=== PATIENT | female | born 1980 | race Caucasian/White ===

== ENCOUNTER 2018-07-20 09:34 | Outpatient (CLI) | payer BC, SELFPAY ==
[2018-07-20 09:52] LABS: HGB 12.7 g/dL (12.0-15.5); Mean Corp. HGB Concentration 33.4 g/dL (32.0-36.0); Mean Corpuscular Volume 92.7 fL (80-95); Mean Platelet Volume 10.2 fL (8.0-11.0); Platelet Count 190 x1000/uL (130-400); RBC Distribution Width 12.7 % (11.7-14.6); White Blood Cell Count 12.39 k/cumm (4.4-10.8)
[2018-07-20 10:00] LABS: Glucose,1 Hr (Glucola) 100 mg/dL (80-140)
== END 2018-07-20 09:54 ==
PROVIDERS: PCP Internal Medicine; Visit Provider Advanced Practice Midwife
DX: Z34.93 Encounter for supervision of normal pregnancy, unspecified, third trimester (principal); Z3A.28 28 weeks gestation of pregnancy
CPT/HCPCS: 36415; 82950; 85027

== ENCOUNTER 2018-09-01 09:58 | Outpatient (CLI) | payer BC, SELFPAY ==
[2018-09-01 10:28] LABS: HCT 38.5 % (36.0-46.0); HGB 12.5 g/dL (12.0-15.5); Mean Corp. HGB Concentration 32.5 g/dL (32.0-36.0); Mean Corpuscular Hemoglobin 28.4 pg (27.0-33.0); Mean Corpuscular Volume 87.5 fL (80-95); Mean Platelet Volume 11.3 fL (8.0-11.0); Platelet Count 184 x1000/uL (130-400); RBC Distribution Width 13.3 % (11.7-14.6); White Blood Cell Count 9.02 k/cumm (4.4-10.8)
[2018-09-01 11:14] LABS: ALT 22 U/L (12-78); AST 22 U/L (15-37); Albumin 2.3 g/dL (3.4-5.0); Alkaline Phosphatase 195 U/L (46-116); Bilirubin, Direct 0.09 mg/dL (0.00-0.20); Bilirubin, Total 0.5 mg/dL (0.2-1.0); Total Protein 5.7 g/dL (6.4-8.2); Uric Acid 4.7 mg/dL (2.6-6.0)
[2018-09-01 13:39] LABS: PROTEIN 20.8 mg/dL
[2018-09-01 13:42] LABS: COMMENT (LAB VIEW ONLY) 207.15 mg/dL
== END 2018-09-01 10:18 ==
PROVIDERS: PCP Internal Medicine; Visit Provider Advanced Practice Midwife
DX: Z98.891 History of uterine scar from previous surgery (principal); Z34.93 Encounter for supervision of normal pregnancy, unspecified, third trimester
CPT/HCPCS: 36415; 80076; 85027; 82565; 84156; 84550

== ENCOUNTER 2018-09-11 16:20 | Inpatient (IN) | payer BC, SELFPAY ==
[2018-09-11 16:58] LABS: HCT 36.1 % (36.0-46.0); HGB 11.9 g/dL (12.0-15.5); Mean Corpuscular Hemoglobin 28.3 pg (27.0-33.0); Mean Platelet Volume 11.7 fL (8.0-11.0); Platelet Count 189 x1000/uL (130-400); RBC Distribution Width 13.6 % (11.7-14.6); White Blood Cell Count 9.28 k/cumm (4.4-10.8)
[2018-09-11 17:11] LABS: ALT 22 U/L (12-78); AST 24 U/L (15-37); Albumin 2.2 g/dL (3.4-5.0); Alkaline Phosphatase 211 U/L (46-116); Anion Gap 8.6 mmol/L (3-11); BUN 14 mg/dL (7-18); Bilirubin, Total 0.5 mg/dL (0.2-1.0); CO2 24.4 mmol/L (21.0-32.0); CREATININE 0.75 mg/dL (0.55-1.02); Calcium 8.4 mg/dL (8.5-10.1); Chloride 102 mmol/L (98-107); Glucose 86 mg/dL (70-100); Potassium 4.2 mmol/L (3.5-5.1); Sodium 135 mmol/L (136-145); Total Protein 6.2 g/dL (6.4-8.2)
[2018-09-11 17:30] LABS: PROTEIN 185.5 mg/dL
[2018-09-11 17:32] LABS: COMMENT (LAB VIEW ONLY) 242.52 mg/dL; Prot/Crea Ur Ratio 0.76
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
[2018-09-11] MEDS: Labetalol 100 MG/20 ML VIAL IVP (18:29)
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
[2018-09-11] MEDS: Lactated Ringers 1,000 ML 30 ML IV (18:36)
[2018-09-11] MEDS: Normal Saline Flush 10 ML SYR 20 ML (18:46)
[2018-09-11] MEDS: Labetalol 100 MG TAB 200 MG PO (19:40)
[2018-09-12 00:43] LABS: HGB 11.8 g/dL (12.0-15.5); Mean Corp. HGB Concentration 32.8 g/dL (32.0-36.0); Mean Corpuscular Hemoglobin 28.2 pg (27.0-33.0); Mean Corpuscular Volume 85.9 fL (80-95); Mean Platelet Volume 11.1 fL (8.0-11.0); Platelet Count 184 x1000/uL (130-400); RBC 4.19 m/cumm (4.00-5.20); RBC Distribution Width 13.7 % (11.7-14.6); White Blood Cell Count 10.28 k/cumm (4.4-10.8)
[2018-09-12 00:56] LABS: ALT 23 U/L (12-78); AST 26 U/L (15-37); Albumin 2.2 g/dL (3.4-5.0); Alkaline Phosphatase 212 U/L (46-116); Anion Gap 9.7 mmol/L (3-11); BUN 13 mg/dL (7-18); Bilirubin, Total 0.6 mg/dL (0.2-1.0); CO2 24.3 mmol/L (21.0-32.0); CREATININE 0.77 mg/dL (0.55-1.02); Calcium 8.1 mg/dL (8.5-10.1); Chloride 101 mmol/L (98-107); Glucose 85 mg/dL (70-100); Potassium 3.8 mmol/L (3.5-5.1); Sodium 135 mmol/L (136-145); Total Protein 6.2 g/dL (6.4-8.2)
--- NOTE | 2018-09-12 08:12 | PGE_ITS ---
Assessment and Plan (1) Preeclampsia: Current visit: Yes Status: Acute Patient admitted for evaluation of preeclampsia. Her blood pressures have been reasonable overnight since starting antihypertensive medications. I had a lengthy discussion with the patient regarding conditions that would prompt delivery including elevated blodo pressures, laboratory abnormalities or signs and symptoms that would suggest severe preeclampsia. 24 hour urine is in progress. We will obtain a growth ultrasound today. NST 3x per day. Subjective Interval history since last seen: No problems overnight. Denies headache or visual changes since admission. Feels well. Reports good movement. Exam Resp Effort & Inspection: normal respiratory effort Auscultation: clear to auscultation bilaterally Cardio Rhythm: regular rhythm Heart Sounds: S1 normal and S2 normal Extrem Other: 2+ edema Objective Objective Clinical Data: Abnormal lab results 09/11/18 09/11/18 09/12/18 Range/Units 16:50 16:50 00:35 Hgb 11.9 L (12.0-15.5) g/dL MPV 11.7 H (8.0-11.0) fL Sodium 135 L 135 L (136-145) mmol/L Calcium 8.4 L 8.1 L (8.5-10.1) mg/dL Alkaline Phosphatase 211 H 212 H (46-116) U/L Total Protein 6.2 L 6.2 L (6.4-8.2) g/dL Albumin 2.2 L 2.2 L (3.4-5.0) g/dL 09/12/18 Range/Units 00:35 Hgb 11.8 L (12.0-15.5) g/dL MPV 11.1 H (8.0-11.0) fL Sodium (136-145) mmol/L Calcium (8.5-10.1) mg/dL Alkaline Phosphatase (46-116) U/L Total Protein (6.4-8.2) g/dL Albumin (3.4-5.0) g/dL Intake & Output 09/11/18 09/11/18 09/12/18 11:59 23:59 11:59 Weight 199 lb Laboratory Results WBC 10.28 k/cumm (4.4-10.8) 09/12/18 00:35 RBC 4.19 m/cumm (4.00-5.20) 09/12/18 00:35 Hgb 11.8 g/dL (12.0-15.5) L 09/12/18 00:35 Hct 36.0 % (36.0-46.0) 09/12/18 00:35 MCV 85.9 fL (80-95) 09/12/18 00:35 MCH 28.2 pg (27.0-33.0) 09/12/18 00:35 MCHC 32.8 g/dL (32.0-36.0) 09/12/18 00:35 RDW 13.7 % (11.7-14.6) 09/12/18 00:35 Plt Count 184 x1000/uL (130-400) 09/12/18 00:35 MPV 11.1 fL (8.0-11.0) H 09/12/18 00:35 Sodium 135 mmol/L (136-145) L 09/12/18 00:35 Potassium 3.8 mmol/L (3.5-5.1) 09/12/18 00:35 Chloride 101 mmol/L (98-107) 09/12/18 00:35 Carbon Dioxide 24.3 mmol/L (21.0-32.0) 09/12/18 00:35 Anion Gap 9.7 mmol/L (3-11) 09/12/18 00:35 BUN 13 mg/dL (7-18) 09/12/18 00:35 Creatinine 0.77 mg/dL (0.55-1.02) 09/12/18 00:35 Estimated GFR/1.73 m2 >= 60.00 (mL/min/1.73m2) 09/12/18 00:35 Glucose 85 mg/dL (70-100) 09/12/18 00:35 Calcium 8.1 mg/dL (8.5-10.1) L 09/12/18 00:35 Total Bilirubin 0.6 mg/dL (0.2-1.0) 09/12/18 00:35 AST 26 U/L (15-37) 09/12/18 00:35 ALT 23 U/L (12-78) 09/12/18 00:35 Alkaline Phosphatase 212 U/L (46-116) H 09/12/18 00:35 Total Protein 6.2 g/dL (6.4-8.2) L 09/12/18 00:35 Albumin 2.2 g/dL (3.4-5.0) L 09/12/18 00:35 Ur Random Creatinine 242.52 mg/dL 09/11/18 16:50 U Random Total Protein 185.5 mg/dL 09/11/18 16:50 U [place] Prot/Creat Ratio 0.76 09/11/18 16:50 Patient ABO/Rh O Positive 09/12/18 00:35 Antibody Screen Negative 09/12/18 00:35
[2018-09-12] MEDS: Labetalol 100 MG TAB 200 MG PO ×2 (08:16→20:00)
--- NOTE | 2018-09-12 10:18 | DI.US_ITS ---
Many abnormalities cannot be diagnosed. A normal exam does not exclude a congenital anomaly. Radiology No. LMP: Exam Date: 09/12/18 [facility] 10 wks 2 days on 03/11/18 EDC ([facility]) 10/07/18 Confirmed: HISTORY: PRE ECLAMPSIA ---- PREDICTED GESTATIONAL AGE NUMBER 36.5 weeks with a range of 35.5 week to 37.5 weeks. 1 Determined by__[id number]___LMP___HISTORY Info. pertaining to fetus # PLACENTA PRESENTATION Grade I-II Cephalic_X__ Anterior_X__Posterior___ Breech____ Right Left Transverse(head right___ Fundal___Low-lying___Previa___ Transverse(head left___ Varying BIOMETRY AMNIOTIC FLUID BPD: 91 mm 37 weeks Normal HC: 334 mm 38.1 weeks AC: 339 mm 37.6 weeks FL: 73 mm 37.1 weeks AMNIOTIC FLUID INDEX >26 WK CRL: mm weeks Cisterna Magna: mm CI: 0.81 RUQ:__5.76____LUQ___5.54 Cerebellum: cm EFW: [address] Percentile RLQ:_3.93 LLQ__4.16 Total:____19.4____cms Composite AGE= 37.4 wks EDC by US____09/29/18 BIOPHYSICAL PROFILE ANATOMY IDENTIFIED SCORE 0/2 Heart: 4-Chamber___Rate:BPM__131___ LVOT: RVOT: Amniotic Fluid(>2cms)____ Stomach:____X___ Kidneys:____X___ Respirations (>30 secs) Bladder: X__ Post. Fossa: Body Flex/Extension 3 vessel cord: Ventricles: cord insertion: Lips:____ Extremity Flex/Extension spinal morphology: Nose: Total Score= Palate: NS=not seen There is a single living intrauterine gestation. Estimated sonographic age is 37 weeks 4 days. heart rate is 131 beats per minute. A complete anatomic evaluation was not performed at this time. Estimated weight is 3258 grams. This is the 83 rd percentile. Amniotic fluid index is 19.4 cm. Visually, amniotic fluid is within normal limits. The placenta is anterior and unremarkable. IMPRESSION: Single living intrauterine gestation. Estimated sonographic is 37 weeks 4 days.
--- NOTE | 2018-09-12 16:40 | W.PM.PROGNOT ---
Assessment and Plan (1) Preeclampsia: Current visit: Yes Status: Acute Will plan to proceed with repeat section and bilateral tubal ligation tomorrow morning. If blood pressures enter severe range will proceed with delivery this evening and start on magnesium sulfate. Will continue labetalol for now. We did have a lengthy discussion related to risks of prematurity at 36 weeks gestation and discussed risks such as the need for respiratory support. All questions were answered. (2) Previous section: Current visit: No Status: Acute (3) Request for sterilization: Current visit: No Status: Acute Subjective Interval history since last seen: Doing well. Denies headache or visual changes. She does feel that her edema is gradually worsening also. Ambulatory within room. Blood pressures have been increasing steadily. She does report good movement. Exam Resp Auscultation: clear to auscultation bilaterally Cardio Rhythm: regular rhythm Heart Sounds: S1 normal and S2 normal Extrem Other: 2+ pitting edema. Brisk reflexes. Objective Objective Clinical Data: Abnormal lab results 09/11/18 09/11/18 09/12/18 Range/Units 16:50 16:50 00:35 Hgb 11.9 L (12.0-15.5) g/dL MPV 11.7 H (8.0-11.0) fL Sodium 135 L 135 L (136-145) mmol/L Calcium 8.4 L 8.1 L (8.5-10.1) mg/dL Alkaline Phosphatase 211 H 212 H (46-116) U/L Total Protein 6.2 L 6.2 L (6.4-8.2) g/dL Albumin 2.2 L 2.2 L (3.4-5.0) g/dL 09/12/18 Range/Units 00:35 Hgb 11.8 L (12.0-15.5) g/dL MPV 11.1 H (8.0-11.0) fL Sodium (136-145) mmol/L Calcium (8.5-10.1) mg/dL Alkaline Phosphatase (46-116) U/L Total Protein (6.4-8.2) g/dL Albumin (3.4-5.0) g/dL Intake & Output 09/11/18 09/12/18 09/12/18 23:59 11:59 23:59 Weight 199 lb Laboratory Results WBC 10.28 k/cumm (4.4-10.8) 09/12/18 00:35 RBC 4.19 m/cumm (4.00-5.20) 09/12/18 00:35 Hgb 11.8 g/dL (12.0-15.5) L 09/12/18 00:35 Hct 36.0 % (36.0-46.0) 09/12/18 00:35 MCV 85.9 fL (80-95) 09/12/18 00:35 MCH 28.2 pg (27.0-33.0) 09/12/18 00:35 MCHC 32.8 g/dL (32.0-36.0) 09/12/18 00:35 RDW 13.7 % (11.7-14.6) 09/12/18 00:35 Plt Count 184 x1000/uL (130-400) 09/12/18 00:35 MPV 11.1 fL (8.0-11.0) H 09/12/18 00:35 Sodium 135 mmol/L (136-145) L 09/12/18 00:35 Potassium 3.8 mmol/L (3.5-5.1) 09/12/18 00:35 Chloride 101 mmol/L (98-107) 09/12/18 00:35 Carbon Dioxide 24.3 mmol/L (21.0-32.0) 09/12/18 00:35 Anion Gap 9.7 mmol/L (3-11) 09/12/18 00:35 BUN 13 mg/dL (7-18) 09/12/18 00:35 Creatinine 0.77 mg/dL (0.55-1.02) 09/12/18 00:35 Estimated GFR/1.73 m2 >= 60.00 (mL/min/1.73m2) 09/12/18 00:35 Glucose 85 mg/dL (70-100) 09/12/18 00:35 Calcium 8.1 mg/dL (8.5-10.1) L 09/12/18 00:35 Total Bilirubin 0.6 mg/dL (0.2-1.0) 09/12/18 00:35 AST 26 U/L (15-37) 09/12/18 00:35 ALT 23 U/L (12-78) 09/12/18 00:35 Alkaline Phosphatase 212 U/L (46-116) H 09/12/18 00:35 Total Protein 6.2 g/dL (6.4-8.2) L 09/12/18 00:35 Albumin 2.2 g/dL (3.4-5.0) L 09/12/18 00:35 Ur Random Creatinine 242.52 mg/dL 09/11/18 16:50 U Random Total Protein 185.5 mg/dL 09/11/18 16:50 U [place] Prot/Creat Ratio 0.76 09/11/18 16:50 Patient ABO/Rh O Positive 09/12/18 00:35 Antibody Screen Negative 09/12/18 00:35
[2018-09-12] MEDS: Lactated Ringers 1,000 ML 30 ML IV (19:41)
[2018-09-12 21:52] LABS: Total Volume 1900 ml
[2018-09-12 21:57] LABS: PROTEIN 16.1 mg/dL (0.0-11.9)
[2018-09-12 22:01] LABS: TOTAL PROTEIN,URINE TIMED 305.9 mg/24hr (0.0-149.1)
[2018-09-13] MEDS: Lactated Ringers 1,000 ML 200 ML IV ×2 (05:08)
[2018-09-13] MEDS: Sodium Citrate 30 ML CUP PO (07:24)
[2018-09-13] MEDS: Lactated Ringers 1,000 ML 30 ML IV (07:26)
[2018-09-13 07:30] LABS: HCT 35.7 % (36.0-46.0); HGB 11.5 g/dL (12.0-15.5); Mean Corp. HGB Concentration 32.2 g/dL (32.0-36.0); Mean Corpuscular Hemoglobin 27.9 pg (27.0-33.0); Mean Corpuscular Volume 86.7 fL (80-95); Mean Platelet Volume 11.2 fL (8.0-11.0); Platelet Count 184 x1000/uL (130-400); RBC 4.12 m/cumm (4.00-5.20); White Blood Cell Count 7.61 k/cumm (4.4-10.8)
--- NOTE | 2018-09-13 07:34 | W.PM.PROGNOT ---
Assessment and Plan (1) Preeclampsia: Current visit: Yes Status: Acute (2) Previous section: Current visit: No Status: Acute Plan to proceed with RLTCS and tubal sterilization via salpingectomy. Risks of surgery were reviewed with the patient including hemorrhage, infection and injury to other organs such as bowel and bladder. We discused the intended irreversibility of tubal ligation and she had been counseled on alternative forms of contraception. All questions were answered to the patient's satisfaction and consent was obtained. Subjective Interval history since last seen: No problems overnight. Denies headache or visual changes. Reports good movement. Exam Resp Auscultation: clear to auscultation bilaterally Cardio Rhythm: regular rhythm Heart Sounds: S1 normal and S2 normal Objective Objective Clinical Data: Abnormal lab results 09/11/18 Range/Units 19:50 U Random Total Protein 16.1 H (0.0-11.9) mg/dL Ur Total Protein 24 Hr 305.9 H (0.0-149.1) mg/24hr Intake & Output 09/12/18 09/12/18 09/13/18 11:59 23:59 11:59 Intake Total 752.5 / 752.5 352.5 / 352.5 Balance 752.5 / 752.5 352.5 / 352.5 Intake: IV 752.5 / 752.5 352.5 / 352.5 Laboratory Results WBC 10.28 k/cumm (4.4-10.8) 09/12/18 00:35 RBC 4.19 m/cumm (4.00-5.20) 09/12/18 00:35 Hgb 11.8 g/dL (12.0-15.5) L 09/12/18 00:35 Hct 36.0 % (36.0-46.0) 09/12/18 00:35 MCV 85.9 fL (80-95) 09/12/18 00:35 MCH 28.2 pg (27.0-33.0) 09/12/18 00:35 MCHC 32.8 g/dL (32.0-36.0) 09/12/18 00:35 RDW 13.7 % (11.7-14.6) 09/12/18 00:35 Plt Count 184 x1000/uL (130-400) 09/12/18 00:35 MPV 11.1 fL (8.0-11.0) H 09/12/18 00:35 Sodium 135 mmol/L (136-145) L 09/12/18 00:35 Potassium 3.8 mmol/L (3.5-5.1) 09/12/18 00:35 Chloride 101 mmol/L (98-107) 09/12/18 00:35 Carbon Dioxide 24.3 mmol/L (21.0-32.0) 09/12/18 00:35 Anion Gap 9.7 mmol/L (3-11) 09/12/18 00:35 BUN 13 mg/dL (7-18) 09/12/18 00:35 Creatinine 0.77 mg/dL (0.55-1.02) 09/12/18 00:35 Estimated GFR/1.73 m2 >= 60.00 (mL/min/1.73m2) 09/12/18 00:35 Glucose 85 mg/dL (70-100) 09/12/18 00:35 Calcium 8.1 mg/dL (8.5-10.1) L 09/12/18 00:35 Total Bilirubin 0.6 mg/dL (0.2-1.0) 09/12/18 00:35 AST 26 U/L (15-37) 09/12/18 00:35 ALT 23 U/L (12-78) 09/12/18 00:35 Alkaline Phosphatase 212 U/L (46-116) H 09/12/18 00:35 Total Protein 6.2 g/dL (6.4-8.2) L 09/12/18 00:35 Albumin 2.2 g/dL (3.4-5.0) L 09/12/18 00:35 Ur Random Creatinine 242.52 mg/dL 09/11/18 16:50 U Random Total Protein 16.1 mg/dL (0.0-11.9) H 09/11/18 19:50 U [place] Prot/Creat Ratio 0.76 09/11/18 16:50 Urine Total Volume 1900 ml 09/11/18 19:50 Ur Total Protein 24 Hr 305.9 mg/24hr (0.0-149.1) H 09/11/18 19:50 Patient ABO/Rh O Positive 09/12/18 00:35 Antibody Screen Negative 09/12/18 00:35
[2018-09-13 07:41] LABS: ALT 23 U/L (12-78); AST 26 U/L (15-37); Albumin 2.1 g/dL (3.4-5.0); Alkaline Phosphatase 203 U/L (46-116); Anion Gap 9.5 mmol/L (3-11); BUN 8 mg/dL (7-18); Bilirubin, Total 0.7 mg/dL (0.2-1.0); CO2 23.5 mmol/L (21.0-32.0); CREATININE 0.76 mg/dL (0.55-1.02); Calcium 8.4 mg/dL (8.5-10.1); Chloride 105 mmol/L (98-107); Glucose 81 mg/dL (70-100); Potassium 4.1 mmol/L (3.5-5.1); Sodium 138 mmol/L (136-145); Total Protein 5.9 g/dL (6.4-8.2)
--- NOTE | 2018-09-13 08:11 | PLAC_PTH ---
PATIENT: Tatyana Ray LOC: OBS U#:[id number] AGE/SX: 38/F ROOM: OBS.306 RE09/11/[address]: Elie Fogn MD : [id number] BED: A DIS: 09/16/2018 SPEC #: [id number] RECD: 09/13/18 12:55 STATUS: MEAGAN REQ #: [id number] SANTOS: 09/13/18 08:[address]: Elie Fong DEPT: Surgical Specimen RECD BY: Aura John ENTERED: 09/13/18 12:58 SP TYPE: PLAC OTHR DR: Abhilash Valencia Tissues: 1 - PLACENTA (3RD TRIMESTER) 2 - FALLOPIAN TUBE (STERILIZATION) 3 - FALLOPIAN TUBE (STERILIZATION) Procedures: GROSS AND MICRO LEVEL 2 GROSS AND MICRO LEVEL 5 Comments: [id number]
[2018-09-13] MEDS: Bupivacaine 0.25% Pres-Free 30 ML VIAL (08:27)
--- NOTE | 2018-09-13 10:03 | W.PM.OP ---
Date of service: 09/13/18 Time of Service: 10:03 Operative Note DATE OF PROCEDURE: 09/13/18 PRE-OP DIAGNOSIS: 36 weeks. Severe Preeclampsia. Desire for permanent sterilization POST-OP DIAGNOSIS: same PROCEDURE: Repeat low transverse section Bilateral tubal sterilization via salpingectomy SURGEON: Elie Fong GRAVURE PRESS OPERATOR: Aristeo Jessica ANESTHESIA: GETA ESTIMATED BLOOD LOSS: 600 Patient was transported to: floor Patient's condition: stable Implants: None Procedure Description: The patient was taken to the operating room and after adequate spinal anesthesia the patient was placed in supine position. The patient was prepped and draped in the usual sterile fashion. A Pfannesstiel incision was made through the previous incision with a #10 scalpel and taken down to the underlying fascia. The fascia was incised with the scalpel and extended laterally with Nava scissors. The superior and inferior aspects of the fascial incsision were dissected off the underlying rectus muscles with blunt and sharp dissection. The rectus were divided along the linea alba and the peritoneum was entered bluntly. The vesicouterine flap was tented with pickups and incised with Metzenbaum scissors. The bladder flap was developed with both blunt and sharp dissection. The lower uterine segment was incised in a transverse manner with the scalpel and the incision was extended laterally in either direction via stretch. The infant was found in cepahlic presentation and delivered atraumatically. Mouth and nose were suctioned. The cord was clamped and cut and the infant was handed off to the awaiting cloth inspector. The placenta was manually extracted and the uterus was exteriorized. The uterus was cleared of all clots and debris. The uterine incision was closed with a running locked stitch of #1 chromic. A second imbricating layer of #1 chromic completed the repair. The bladder flap was reapproximated with a running stitch of 3-0 vicryl. Excellent hemostasis was noted. The uterus was returned to the abdomen. Attention was turned to the right fallopian tube which was grasped and elevated with a Denison clamp. Dissection was carried accross the mesosalpinx with the ligasure device and taken to the most proximal point. The tube was coagulated and transected. A similar procedure was carried out on the left side. Fallopian tubes were submitted to pathology. The peritoneum was closed with a running stitch of 2-0 vicryl. The subfascial space was thoroughly inspected and limited use of the Bovie cautery was used to obtain hemostasis. The fascia was closed with a running stitch of 0 vicryl. The subcutaneous tissues were closed with interrupted sutures of 3-0 vicryl. The skin was closed with a running subcuticular stitch of 4-0 monocryl and dermabond applied. The procedure was concluded at this point. Sponge, lap and needle counts were correct at the conclusion of the procedure and the patient was transferred to PACU in stable condition.
--- NOTE | 2018-09-13 10:06 | ROE_ITS ---
Date of service: 09/13/18 Time of Service: 10:03 Operative Note DATE OF PROCEDURE: 09/13/18 PRE-OP DIAGNOSIS: 36 weeks. Severe Preeclampsia. Desire for permanent sterilization POST-OP DIAGNOSIS: same PROCEDURE: Repeat low transverse section Bilateral tubal sterilization via salpingectomy SURGEON: Elie Fong MATERIALS ENGINEERING TECHNICIAN: Aristeo Jessica ANESTHESIA: GETA ESTIMATED BLOOD LOSS: 600 Patient was transported to: floor Patient's condition: stable Implants: None Procedure Description: The patient was taken to the operating room and after adequate spinal anesthesia the patient was placed in supine position. The patient was prepped and draped in the usual sterile fashion. A Pfannesstiel incision was made through the previous incision with a #10 scalpel and taken down to the underlying fascia. The fascia was incised with the scalpel and extended laterally with Nava scissors. The superior and inferior aspects of the fascial incsision were dissected off the underlying rectus muscles with blunt and sharp dissection. The rectus were divided along the linea alba and the peritoneum was entered bluntly. The vesicouterine flap was tented with pickups and incised with Metzenbaum scissors. The bladder flap was developed with both blunt and sharp dissection. The lower uterine segment was incised in a transverse manner with the scalpel and the incision was extended laterally in either direction via stretch. The infant was found in cepahlic presentation and delivered atraumatically. Mouth and nose were suctioned. The cord was clamped and cut and the infant was handed off to the awaiting specialist employee labor relations. The placenta was manually extracted and the uterus was exteriorized. The uterus was cleared of all clots and debris. The uterine incision was closed with a running locked stitch of #1 chromic. A second imbricating layer of #1 chromic completed the repair. The bladder flap was reapproximated with a running stitch of 3-0 vicryl. Excellent hemostasis was noted. The uterus was returned to the abdomen. Attention was turned to the right fallopian tube which was grasped and elevated with a Chapman clamp. Dissection was carried accross the mesosalpinx with the ligasure device and taken to the most proximal point. The tube was coagulated and transected. A similar procedure was carried out on the left side. Fallopian tubes were submitted to pathology. The peritoneum was closed with a running stitch of 2-0 vicryl. The subfascial space was thoroughly inspected and limited use of the Bovie cautery was used to obtain hemostasis. The fascia was closed with a running stitch of 0 vicryl. The subcutaneous tissues were closed with interrupted sutures of 3-0 vicryl. The skin was closed with a running subcuticular stitch of 4-0 monocryl and dermabond applied. The procedure was concluded at this point. Sponge, lap and needle counts were correct at the conclusion of the procedure and the patient was transferred to PACU in stable condition.
[2018-09-13] MEDS: Normal Saline Flush 10 ML SYR IVP ×2 (11:07→14:22)
[2018-09-13] MEDS: Ketorolac 30 MG/ML VIAL IVP ×2 (14:20→20:12)
[2018-09-13] MEDS: Lactated Ringers 1,000 ML 120 ML IV (18:15)
[2018-09-14] MEDS: Ketorolac 30 MG/ML VIAL IVP ×4 (02:33→19:44)
[2018-09-14] MEDS: Normal Saline Flush 10 ML SYR IVP ×4 (02:35→19:45)
[2018-09-14 07:42] LABS: HCT 30.7 % (36.0-46.0); HGB 9.7 g/dL (12.0-15.5); Mean Corp. HGB Concentration 31.6 g/dL (32.0-36.0); Mean Corpuscular Hemoglobin 27.5 pg (27.0-33.0); Mean Platelet Volume 11.3 fL (8.0-11.0); Platelet Count 164 x1000/uL (130-400); RBC 3.53 m/cumm (4.00-5.20); RBC Distribution Width 14.1 % (11.7-14.6); White Blood Cell Count 16.79 k/cumm (4.4-10.8)
[2018-09-15] MEDS: Ibuprofen 600 MG TAB PO ×3 (01:12→18:10)
[2018-09-15] MEDS: Acetaminophen 325 MG TAB 650 MG PO (12:32)
[2018-09-16] MEDS: Acetaminophen 325 MG TAB 650 MG PO (09:36)
[2018-09-16] MEDS: Ibuprofen 600 MG TAB PO (09:37)
== END 2018-09-16 16:40 | disposition home or self-care (01) | DRG 785 ==
PROVIDERS: Admitting Provider Obstetrics & Gynecology; PCP Internal Medicine; Visit Provider Obstetrics & Gynecology
PROC: 10D00Z1 Extraction of Products of Conception, Low, Open Approach (ICD-10-PCS; CPT 59514; principal; 2018-09-13 07:30)
DX: O14.14 Severe pre-eclampsia complicating childbirth (principal); Z3A.36 36 weeks gestation of pregnancy; Z37.0 Single live birth; O34.211 Maternal care for low transverse scar from previous cesarean delivery; N85.8 Other specified noninflammatory disorders of uterus; Z30.2 Encounter for sterilization
CPT/HCPCS: 59515; 58611; 36415; 76816; 80053; 85027; 86850; 86900; 86901; 99223; 99233; 81050; 82565; 84155; 84156; 88302; 88307; G0378; J0131; J0690; J1100; J1885; J2370; J2405; J2590; J3010; J3490

== ENCOUNTER 2020-08-22 15:04 | Outpatient (REF) | payer SELFPAY ==
[2020-08-24 20:23] LABS: COVID-19 RT-PCR Result NEGATIVE (Negative)
== END 2020-08-22 15:24 ==
LOC: NCHCN 15:04
PROVIDERS: PCP Internal Medicine; Visit Provider Physician Assistant
DX: Z11.59 Encounter for screening for other viral diseases (principal)
CPT/HCPCS: U0003

== ENCOUNTER 2023-05-27 18:41 | Outpatient (REF) | payer SELFPAY ==
--- NOTE | 2023-05-27 13:55 | PAPFT_PTH ---
PATIENT: Tatyana Ray [id number] AGE/SX: 43/F ROOM: RE05/27/[address]: David Bruno : 1980 BED: DIS: 05/27/2023 SPEC #: [id number] RECD: 05/28/23 13:10 STATUS: MEAGAN REMariusz #: [id number] SANTOS: 05/27/23 13:[address] Cytology RECD BY: Aura John ENTERED: 05/28/23 13:10 SP TYPE: PAPFT OTHR DR: Abhilash Valencia Tissues: 1 - CX/ENDOCX FOR PAP SMEARS Procedures: PAP THIN PREP/UVM Screening HPV DNA PROBE Comments: [id number]
== END 2023-05-27 18:42 | disposition home or self-care (01) ==
LOC: NCHCN 18:41
PROVIDERS: PCP Internal Medicine; Visit Provider Nurse Practitioner Family
DX: Z12.4 Encounter for screening for malignant neoplasm of cervix (principal); Z11.51 Encounter for screening for human papillomavirus (HPV)
CPT/HCPCS: 88142; 87624

== ENCOUNTER 2023-06-17 19:09 | Outpatient (REF) | payer SELFPAY ==
[2023-06-22 10:19] LABS: Varicella IgG Antibody Positive (See Note)
== END 2023-06-17 19:10 | disposition home or self-care (01) ==
LOC: NCHCN 19:09
PROVIDERS: PCP Internal Medicine; Visit Provider Nurse Practitioner Family
DX: Z00.00 Encounter for general adult medical examination without abnormal findings (principal); Z11.59 Encounter for screening for other viral diseases; Z01.84 Encounter for antibody response examination
CPT/HCPCS: 86787

== ENCOUNTER 2025-05-29 18:26 | Outpatient (REF) | payer SELFPAY ==
[2025-05-29 19:35] LABS: ALT 24 U/L (14-59); AST 23 U/L (15-37); Albumin 3.6 g/dL (3.4-5.0); Alkaline Phosphatase 87 U/L (46-116); Anion Gap 6.7 mmol/L (3-11); BUN 15 mg/dL (7-18); Bilirubin, Total 0.7 mg/dL (0.2-1.0); CO2 27.3 mmol/L (21.0-32.0); Calcium 8.5 mg/dL (8.5-10.1); Chloride 107 mmol/L (98-107); Estimated GFR 112.73 (mL/min/1.73m2); Glucose 100 mg/dL (74-106); Potassium 4.0 mmol/L (3.5-5.1); Sodium 141 mmol/L (136-145); Total Protein 7.4 g/dL (6.4-8.2); Uric Acid 3.1 mg/dL (2.6-6.0)
== END 2025-05-29 18:27 | disposition home or self-care (01) ==
LOC: NCHCN 18:26
PROVIDERS: PCP Internal Medicine; Visit Provider Nurse Practitioner Family
DX: M79.672 Pain in left foot (principal)
CPT/HCPCS: 80053; 84550